=== PATIENT | female | born 1990 | race Caucasian/White ===

== ENCOUNTER 2016-07-01 12:27 | Emergency (ER) | payer OTHER, MEDICAID | END 2016-07-01 14:55 | disposition home or self-care (01) | LOC: ED 12:27 | DX: O9A.212 Injury, poisoning and certain other consequences of external causes complicating pregnancy, second trimester (principal); M25.511 Pain in right shoulder; V47.5XXA Car driver injured in collision with fixed or stationary object in traffic accident, initial encounter; Y92.410 Unspecified street and highway as the place of occurrence of the external cause; Z3A.21 21 weeks gestation of pregnancy ==